=== PATIENT | male | born 1955 | race Caucasian/White ===

== ENCOUNTER 2019-03-14 15:04 | Inpatient (IN) | payer MEDICARE, MEDICAID ==
[~2019-03-14] VITALS: Ht 185.4 cm; Wt 66.7 kg
[2019-03-14 15:10] VITALS: BP 152/85
--- NOTE | 2019-03-14 15:10 | NUR ---
ED Nurse Note: Pt brought in on wheelchair from doctor's office d/t urinary retention. Pt states "it's hard for me to pee. I haven't peed in days." Respirations even and unlabored on room air. Vitals stable as documented
--- NOTE | 2019-03-14 15:21 | Emergency Room Report ---
History of Present Illness General Chief Complaint: Male Urogenital Problems Source: Patient Present Illness HPI Patient is a 63-year-old male brought in by self after increased difficulty with urination. Prior history of chronic diarrhea. Reports having episodic difficulty emptying bladder as well as urinary problems. Had recent urination this morning.Patient had been also having difficulty going to the bathroom and had been requiring more frequent medications in order to maintain bowel function. Reports having some increased generalized weakness. He states he takes multiple medications which he cannot remember. Allergies: Coded Allergies: AMOXICILLIN (Verified Allergy, Mild, 04/06/15) Patient History Past Medical History: see triage record Reviewed Nursing Documentation: PMH: Agreed; PSxH: Agreed Review of Systems All Other Systems: negative except mentioned in HPI Physical Exam Vital Signs Date Time Temp Pulse Resp B/P (MAP) Pulse Ox O2 Delivery O2 Flow Rate FiO2 03/14/19 15:09 98.1 64 17 158/83 (108) 98 Room Air Sp02 EP Interpretation: reviewed, normal General Appearance: normal inspection, alert, GCS 15, Chronically Ill Head: atraumatic ENT: normal ENT inspection, hearing grossly normal, normal voice Neck: normal inspection, full range of motion, supple, no bony tend Respiratory: normal inspection, lungs clear, normal breath sounds, no respiratory distress, no retraction, no wheezing Cardiovascular #1: regular rate, rhythm, no edema Gastrointestinal: normal inspection, normal bowel sounds, non tender, soft, no guarding, no hernia Genitourinary: no CVA tenderness Musculoskeletal: normal inspection, back normal, normal range of motion Neurologic: alert, motor strength/tone normal, client customer manager III-XII nml as tested, responsive, speech normal, normal inspection Psychiatric: normal inspection, judgement/insight normal, mood/affect normal Skin: no rash Medical Decision Making Diagnostic Impression: Primary Impression: Generalized weakness Additional Impression: Urinary retention ER Course Patient patient presented for increased difficulty with urination. Differential diagnosis include was not limited to urinary retention, prostate enlargement, urinary retention among others.Patient was noted to have no sensation that he needed to void. Prostate hypertrophy as well as intestinal polyps. Patient reportedly had been able to void. Ogden catheter was placed and patient had large amount of urine output. Patient denies sensation that he needed to urinate.Patient was discussed with Dr. Oscar French. Patient be admitted to [facility] per his request. Dr. Honorio Dubon was contacted for inpatient management. Labs Test 03/14/19 15:51 03/14/19 16:30 White Blood Count 3.8 K/UL (4.8-10.8) Red Blood Count 3.67 M/UL (4.70-6.10) Hemoglobin 12.3 G/DL (14.2-18.0) Hematocrit 34.9 % (42.0-52.0) Mean Corpuscular Volume 95 FL (80-99) Mean Corpuscular Hemoglobin 33.5 PG (27.0-31.0) Mean Corpuscular Hemoglobin Concent 35.3 G/DL (32.0-36.0) Red Cell Distribution Width 10.9 % (11.6-14.8) Platelet Count 139 K/UL (150-450) Mean Platelet Volume 7.6 FL (6.5-10.1) Neutrophils (%) (Auto) 45.3 % (45.0-75.0) Lymphocytes (%) (Auto) 40.6 % (20.0-45.0) Monocytes (%) (Auto) 13.1 % (1.0-10.0) Eosinophils (%) (Auto) 0.4 % (0.0-3.0) Basophils (%) (Auto) 0.7 % (0.0-2.0) Prothrombin Time 11.1 SEC (9.30-11.50) Prothromb Time International Ratio 1.0 (0.9-1.1) Activated Partial Thromboplast Time 30 SEC (23-33) Sodium Level 138 MMOL/L (136-145) Potassium Level 4.5 MMOL/L (3.5-5.1) Chloride Level 103 MMOL/L (98-107) Carbon Dioxide Level 29 MMOL/L (21-32) Anion Gap 6 mmol/L (5-15) Blood Urea Nitrogen 9 mg/dL (7-18) Creatinine 0.7 MG/DL (0.55-1.30) Estimat Glomerular Filtration Rate > 60 mL/min (>60) Glucose Level 75 MG/DL (74-106) Calcium Level 9.1 MG/DL (8.5-10.1) Total Bilirubin 0.7 MG/DL (0.2-1.0) Aspartate Amino Transf (AST/SGOT) 23 U/L (15-37) Alanine Aminotransferase (ALT/SGPT) 26 U/L (12-78) Alkaline Phosphatase 142 U/L (46-116) Troponin I 0.005 ng/mL (0.000-0.056) Total Protein 6.3 G/DL (6.4-8.2) Albumin 3.4 G/DL (3.4-5.0) Globulin 2.9 g/dL Albumin/Globulin Ratio 1.2 (1.0-2.7) Lipase 67 U/L (73-393) Urine Color Yellow Urine Appearance Clear Urine pH 6 (4.5-8.0) Urine Specific [place] 1.010 (1.005-1.035) Urine Protein Negative (NEGATIVE) Urine Glucose (UA) Negative (NEGATIVE) Urine Ketones Negative (NEGATIVE) Urine Blood Negative (NEGATIVE) Urine Nitrite Negative (NEGATIVE) Urine Bilirubin Negative (NEGATIVE) Urine Urobilinogen 1 MG/DL (0.0-1.0) Urine Leukocyte Esterase Negative (NEGATIVE) Last Vital Signs Date Time Temp Pulse Resp B/P (MAP) Pulse Ox O2 Delivery O2 Flow Rate FiO2 03/14/19 15:09 98.1 64 17 158/83 (108) 98 Room Air Status: unchanged Disposition: ADMITTED INPATIENT Condition: Stable Scripts Unable to Obtain Active Prescriptions or Reported Meds Eduardo Mckenna MD Mar 14, 2019 15:21
[2019-03-14 16:27] LABS: BASOPHILS % (AUTO) 0.7 % (0.0-2.0); EOSINOPHILS % (AUTO) 0.4 % (0.0-3.0); HEMATOCRIT 34.9 % (42.0-52.0); HEMOGLOBIN 12.3 G/DL (14.2-18.0); LYMPHOCYTES % (AUTO) 40.6 % (20.0-45.0); MEAN CORPUSCULAR VOLUME 95 FL (80-99); MONOCYTES % (AUTO) 13.1 % (1.0-10.0); NEUTROPHILS % (AUTO) 45.3 % (45.0-75.0); PLATELET COUNT 139 K/UL (150-450); RED BLOOD COUNT 3.67 M/UL (4.70-6.10); RED CELL DISTRIBUTION WIDTH 10.9 % (11.6-14.8); WHITE BLOOD COUNT 3.8 K/UL (4.8-10.8)
[2019-03-14 16:43] LABS: ANION GAP 6 mmol/L (5-15); BLOOD UREA NITROGEN 9 mg/dL (7-18); CALCIUM 9.1 MG/DL (8.5-10.1); CARBON DIOXIDE 29 MMOL/L (21-32); CHLORIDE 103 MMOL/L (98-107); CREATININE 0.7 MG/DL (0.55-1.30); POTASSIUM 4.5 MMOL/L (3.5-5.1); SODIUM 138 MMOL/L (136-145)
[2019-03-14 16:47] LABS: ALANINE AMINOTRANSFERASE 26 U/L (12-78); ALBUMIN 3.4 G/DL (3.4-5.0); ALBUMIN/GLOBULIN RATIO 1.2 (1.0-2.7); ALKALINE PHOSPHATASE 142 U/L (46-116); ASPARTATE AMINO TRANSFERASE 23 U/L (15-37); BILIRUBIN,TOTAL 0.7 MG/DL (0.2-1.0)
--- NOTE | 2019-03-14 16:48 | NUR ---
ED Nurse Note: 14Fr rogel inserted and urine sent to lab.
[2019-03-14 17:05] LABS: APPEARANCE,URINE CLEAR; BILIRUBIN, URINE NEGATIVE (NEGATIVE); GLUCOSE, URINE (UA) NEGATIVE (NEGATIVE); KETONES,URINE NEGATIVE (NEGATIVE); LEUKOCYTE ESTERASE ,URINE NEGATIVE (NEGATIVE); NITRITE,URINE NEGATIVE (NEGATIVE); PH,URINE 6 (4.5-8.0); PROTEIN,URINE NEGATIVE (NEGATIVE); UROBILINOGEN,URINE 1 MG/DL (0.0-1.0)
[2019-03-14 17:08] LABS: COLOR,URINE YELLOW
--- NOTE | 2019-03-14 17:55 | NUR ---
ED Nurse Note: Report given to DANIELLA Montana on 4E.
--- NOTE | 2019-03-14 18:01 | NUR ---
NURSE NOTES: received patient report from DANIELLA Emerson,ER. patient will be admitted to room [address] Hodgson.
--- NOTE | 2019-03-14 18:20 | NUR ---
ED Nurse Note: Pt brought up safely to 4E.
--- NOTE | 2019-03-14 18:40 | NUR ---
NURSE NOTES: patient admitted to room 419-1 under Rema AUGUSTIN care dx of weakness and decreased urine. alert. oriented. verbally responsive. no respiratory distress noted on room air. no c/o pain at this time. IV on LH20 intact. F/C 14fr. intact. draining well. no hematuria noted. checked and counted belongings with patient. per patient he is missing photo ID and Bren credit card. Called ER spoke to DANIELLA Suárez. she said she put the bren card back to the black wallet and there was no photo ID. She will check the patient's room again and call us back. two cigarets and pulmonology physician placed in the chart. bed in the lowest position and locked. call light within reach. will continue to provide plan of care.
--- NOTE | 2019-03-14 18:57 | NUR ---
NURSE NOTES: received bren card and shell gas card from JEANNIE Haque nurse. patient is aware.
--- NOTE | 2019-03-14 19:25 | History and Physical ---
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 Patient was initially taking Flomax 0.4 mg daily, recently increased to twice daily. This did not help the patient. Ogden catheter was placed in the ER with significant residual urine of 600 mL. Recent colonoscopy in June 2018 showed no evidence of recurrent anal cancer, radiation changes secondary to anal cancer, multiple colonic polyps including a large polyp in the descending colon which was not Amenable to traditional polypectomy Past medical history: HIV disease, hypertension, ataxia following stroke and substance use, transverse colon adenoma, history of anal cancer status post chemo, dementia with behavioral disturbance, vitamin D deficiency, bipolar disorder, depression, seizure disorder Past surgical history: None Social history: Non-smoker, previous EtOH and cocaine use Family history: Mother with severe lupus Allergies: Coded Allergies: AMOXICILLIN (Verified Allergy, Mild, 04/06/15) Medication History Scheduled Acyclovir* (Zovirax*), 800 MG ORAL BID, (Reported) Clonazepam (Clonazepam), 2 MG PO BID, (Reported) Diphenhydramine Hcl (Banophen), 50 MG PO BID, (Reported) Divalproex Sodium* (Depakote Er*), 1,000 MG ORAL EVERY 12 HOURS, (Reported) Divalproex Sodium* (Depakote Er*), 250 MG ORAL DAILY, (Reported) Ergocalciferol (Vitamin D2) (Ergocalciferol), 50,000 UNIT PO DAILY, (Reported) Escitalopram Oxalate* (Lexapro*), 20 MG ORAL DAILY, (Reported) Hydroxyzine Hcl (Hydroxyzine Hcl), 10 MG PO THREE TIMES A DAY, (Reported) Lactose-Free Food (Boost Plus), 237 ML PO TID, (Reported) Lamotrigine (Lamictal Odt), 150 MG PO DAILY, (Reported) Levetiracetam (Keppra), 1,000 MG ORAL BID, (Reported) Levothyroxine Sodium* (Synthroid*), 200 MCG ORAL DAILY, (Reported) Loperamide HCl (Loperamide), 2 MG ORAL QID, (Reported) Lubiprostone (Amitiza*), 8 MCG ORAL Q12HR, (Reported) Lubiprostone (Amitiza*), 24 MCG ORAL DAILY, (Reported) Maraviroc* (Selzentry*), 150 MG ORAL EVERY 12 HOURS, (Reported) Methylphenidate Hcl* (Ritalin*), 10 MG ORAL BID, (Reported) Miscellaneous Information (Aptivus), 500 MG ORAL BID, (Reported) Modafinil* (Provigil), 100 MG ORAL DAILY, (Reported) Naloxegol Oxalate (Movantik), 12.5 MG PO DAILY, (Reported) Oxymetholone* (Anadrol-50*), 50 MG PO DAILY, (Reported) Propranolol Hcl* (Inderal*), 20 MG ORAL THREE TIMES A DAY, (Reported) Raltegravir Potassium (Isentress), 400 MG ORAL TWICE A DAY, (Reported) Ritonavir (Norvir), 100 MG ORAL TWICE A DAY, (Reported) Rosuvastatin Calcium* (Crestor*), 5 MG ORAL DAILY, (Reported) Sulfamethoxazole/Trimethoprim (Bactrim 400-80 Mg Tablet*), 1 TAB ORAL TWICE A DAY, (Reported) Tamsulosin HCl (Flomax), 0.4 MG ORAL DAILY, (Reported) Thiamine Hcl* (Vitamin B-1*), 50 MG ORAL DAILY, (Reported) Scheduled PRN Diphenhydramine Hcl* (Diphenhydramine Hcl*), 50 MG ORAL BID PRN for Itching, ( Reported) Oxycodone Hcl (Oxycodone Hcl), 10 MG ORAL Q6H PRN for For Pain, (Reported) Miscellaneous Medications Naloxone HCl (Narcan), 4 MG NS, (Reported) Testosterone Cypionate (Depo-Testosterone), 200 MG IM, (Reported) Water/Me-Paraben/Propylparaben (Bacteriostatic Water Vial), 30 ML IJ, (Reported) Patient History Healthcare decision maker N Resuscitation status Advanced Directive on File Review of Systems Constitutional: Reports: weakness Eye: Denies: no symptoms, see HPI, eye pain, blurred vision, tearing, double vision, nose pain, nose congestion, acuity changes, discharge, other ENT: Denies: no symptoms, see HPI, ear pain, ear discharge, nose pain, nose congestion, throat pain, throat swelling, mouth pain, hearing loss, nasal discharge, other Respiratory: Denies: no symptoms, see HPI, cough, orthopnea, shortness of breath, stridor, wheezing, MAR, sputum, other Cardiovascular: Denies: no symptoms, see HPI, chest pain, edema, palpitations, syncope, PND, other Gastrointestinal: Denies: no symptoms, see HPI, abdominal pain, constipation, diarrhea, nausea, vomiting, melena, hematemesis, other Genitourinary: Reports: retention Musculoskeletal: Denies: no symptoms, see HPI, back pain, gout, joint pain, joint swelling, muscle pain, muscle stiffness, other Skin: Denies: no symptoms, see HPI, rash, change in color, change in hair/nails , dryness, lesions, other Psychiatric: Denies: no symptoms, see HPI, prior hx, anxiety, depressed feelings, emotional problems, SI, HI, hallucinations, other Neurological: Denies: no symptoms, see HPI, headache, numbness, paresthesia, seizure, tingling, tremors, focal weakness, syncope, dizziness, other Endocrine: Denies: no symptoms, see HPI, excessive sweating, flushing, intolerance to temperature, increased thirst, increased urine, unexplained weight loss, other Hematologic/Lymphatic: Denies: no symptoms, see HPI, anemia, blood clots, easy bleeding, easy bruising, swollen glands, diathesis, other Physical Exam General Appearance: no apparent distress, cachetic Lines, tubes and drains: peripheral HEENT: normocephalic, atraumatic, anicteric, mucous membranes moist, PERRL, EOMI Neck: non-tender, normal alignment, supple Respiratory/Chest: chest wall non-tender, lungs clear, normal breath sounds, no respiratory distress, no accessory muscle use Cardiovascular/Chest: normal peripheral pulses, normal rate, regular rhythm, no JVD Abdomen: normal bowel sounds, non tender, soft, no organomegaly Extremities: normal range of motion, non-tender, normal inspection, no calf tenderness Skin Exam: normal pigmentation, warm/dry Neurologic: production laborer II-XII grossly normal, no motor/sensory deficits, abnormal gait , alert, oriented x 3, responsive Musculoskeletal: normal muscle bulk Last 24 Hour Vital Signs Date Time Temp Pulse Resp B/P (MAP) Pulse Ox O2 Delivery O2 Flow Rate FiO2 03/14/19 15:10 98.0 65 17 152/85 98 Room Air 03/14/19 15:09 98.1 64 17 158/83 (108) 98 Room Air Laboratory Tests Test 03/14/19 15:51 03/14/19 16:30 White Blood Count 3.8 K/UL (4.8-10.8) L Red Blood Count 3.67 M/UL (4.70-6.10) L Hemoglobin 12.3 G/DL (14.2-18.0) L Hematocrit 34.9 % (42.0-52.0) L Mean Corpuscular Volume 95 FL (80-99) Mean Corpuscular Hemoglobin 33.5 PG (27.0-31.0) H Mean Corpuscular Hemoglobin Concent 35.3 G/DL (32.0-36.0) Red Cell Distribution Width 10.9 % (11.6-14.8) L Platelet Count 139 K/UL (150-450) L Mean Platelet Volume 7.6 FL (6.5-10.1) Neutrophils (%) (Auto) 45.3 % (45.0-75.0) Lymphocytes (%) (Auto) 40.6 % (20.0-45.0) Monocytes (%) (Auto) 13.1 % (1.0-10.0) H Eosinophils (%) (Auto) 0.4 % (0.0-3.0) Basophils (%) (Auto) 0.7 % (0.0-2.0) Prothrombin Time 11.1 SEC (9.30-11.50) Prothromb Time International Ratio 1.0 (0.9-1.1) Activated Partial Thromboplast Time 30 SEC (23-33) Sodium Level 138 MMOL/L (136-145) Potassium Level 4.5 MMOL/L (3.5-5.1) Chloride Level 103 MMOL/L (98-107) Carbon Dioxide Level 29 MMOL/L (21-32) Anion Gap 6 mmol/L (5-15) Blood Urea Nitrogen 9 mg/dL (7-18) Creatinine 0.7 MG/DL (0.55-1.30) Estimat Glomerular Filtration Rate > 60 mL/min (>60) Glucose Level 75 MG/DL (74-106) Calcium Level 9.1 MG/DL (8.5-10.1) Total Bilirubin 0.7 MG/DL (0.2-1.0) Aspartate Amino Transf (AST/SGOT) 23 U/L (15-37) Alanine Aminotransferase (ALT/SGPT) 26 U/L (12-78) Alkaline Phosphatase 142 U/L (46-116) H Troponin I 0.005 ng/mL (0.000-0.056) Total Protein 6.3 G/DL (6.4-8.2) L Albumin 3.4 G/DL (3.4-5.0) Globulin 2.9 g/dL Albumin/Globulin Ratio 1.2 (1.0-2.7) Lipase 67 U/L (73-393) L Urine Color Yellow Urine Appearance Clear Urine pH 6 (4.5-8.0) Urine Specific [place] 1.010 (1.005-1.035) Urine Protein Negative (NEGATIVE) Urine Glucose (UA) Negative (NEGATIVE) Urine Ketones Negative (NEGATIVE) Urine Blood Negative (NEGATIVE) Urine Nitrite Negative (NEGATIVE) Urine Bilirubin Negative (NEGATIVE) Urine Urobilinogen 1 MG/DL (0.0-1.0) H Urine Leukocyte Esterase Negative (NEGATIVE) Height (Feet): 6 Height (Inches): 1.00 Weight (Pounds): 147 Assessment/Plan Status: stable Assessment/Plan: This is a 63-year-old male with HIV disease who presented with urinary retention going on for 2 weeks. #Urinary retention. BPH versus neurogenic bladder Continue Flomax 0.8 mg daily Continue Ogden catheter Urology consult with Dr. Zamora #HIV disease Continue home meds. Patient to bring his own medications in case pharmacy does not carry his HIV medications Continue Bactrim #Hypertension #CVA with ataxia #Hyperlipidemia Continue propanolol Continue Crestor #Hypothyroidism Continue Synthroid #Descending colon large polyp #History of anal cancer status post chemo and radiation GI consult with #Dementia.? HIV related, with behavioral disturbances #Bipolar disorder #Depression Continue Lexapro # seizure disorder Continue Keppra, continue Depakote #Chronic pain pain control, Oxycodone I spent 70 minutes on this encounter. Greater than 50% spent counseling care coordination. Plan of care discussed with patient, Dr. Gillian RN and consultants Time of note may not reflect time of encounter. Honorio Dubon M.D. Mar 14, 2019 19:25
[2019-03-14] MEDS ORDERED: Albuterol/Ipratropium 3ml neb HHN PRN (19:30)
[2019-03-14] MEDS ORDERED: LORazepam 1mg tab ORAL PRN (19:30)
--- NOTE | 2019-03-14 19:37 | NUR ---
HAND-OFF: Report given to DANIELLA Cruz.
[2019-03-14 20:00] VITALS: BP 144/70
--- NOTE | 2019-03-14 20:12 | NUR ---
NURSE NOTES: Received patient in bed, awake, alert, oriented, able to make his needs known, IV site is clean dry and intact. Ogden cath is in place, 14 fr, secured. Call light is within reach, bed is lowered, locked, alarm is on, will continue to monitor for comfort and safety.
[2019-03-14] MEDS ORDERED: Tamsulosin 0.4mg cap ORAL SCH (21:00)
[2019-03-14] MEDS: Depakote ER 250mg tab ORAL SCH (21:08)
[2019-03-15] VITALS: BP 136/77
[2019-03-15 04:00] VITALS: BP 152/96
--- NOTE | 2019-03-15 06:57 | NUR ---
HAND-OFF: Report given to Pedro Luis BREWER.
--- NOTE | 2019-03-15 07:30 | NUR ---
NURSE NOTES: Handoff received from DANIELLA Cruz. Patient received awake and alert and able to make needs known, no acute signs of distress noted. Patient stated that he is cold and requested another gown, provided gown to patient and helped him sit at the bed to eat breakfast. Patient denies pain at this time. IV site is clean dry and intact, saline locked, bed in the low and locked position with call light within reach, will continue to monitor patient. Patient advised to use call light if he needs to get out of bed as he has a rogel and am told by PM nurse that patient is unsteady, bed alarm is on.
[2019-03-15] MEDS: Depakote ER 250mg tab ORAL SCH (09:33)
--- NOTE | 2019-03-15 11:30 | NUR ---
NURSE NOTES: called and spoke to the patient's sister to clarify the medication's the patient takes at home. Patient stated that the dose of keppra and depakote is lower than his regular dose. Sister faxed over the medication list with the updated dose. Entered the medications from both the list given from the sister and the one given from Dr French.
[2019-03-15] MEDS ORDERED: SYNTHROID150 MCG ORAL (11:48)
[2019-03-15] MEDS ORDERED: NORVIR100 M2 ORAL (11:48)
[2019-03-15] MEDS ORDERED: KEPPRA1000 MG ORAL (11:48)
[2019-03-15] MEDS ORDERED: BACTRIM 400-801 EACH ORAL (11:48)
[2019-03-15] MEDS ORDERED: DEPO-TESTO100 MG/1 M IM (11:48)
[2019-03-15] MEDS ORDERED: MOVANTIK12.5 MG PO (11:48)
[2019-03-15] MEDS ORDERED: CLONAZEPAM2 MG PO (11:48)
[2019-03-15] MEDS ORDERED: VITAMIN B-1100 MG ORAL (11:48)
[2019-03-15] MEDS ORDERED: RITALIN10 MG ORAL (11:48)
[2019-03-15] MEDS ORDERED: BANOPHEN50 MG PO (11:48)
[2019-03-15] MEDS ORDERED: IMODIUM2 MG ORAL (11:48)
[2019-03-15] MEDS ORDERED: ERGOCALCIF8000 UNIT1 PO (11:48)
[2019-03-15] MEDS ORDERED: DEPAKOTE ER250 MG ORAL (11:48)
[2019-03-15] MEDS ORDERED: ANADROL-5050 MG PO (11:48)
[2019-03-15] MEDS ORDERED: AMITIZA24 MCG ORAL ×2 (11:48)
[2019-03-15] MEDS ORDERED: HYDROXYZINE HCL10 M1 PO (11:48)
[2019-03-15] MEDS ORDERED: [UNRECOGNIZED DRUG - OTHER] IJ (11:48)
[2019-03-15] MEDS ORDERED: CRESTOR10 M2 ORAL (11:48)
[2019-03-15] MEDS ORDERED: MODAFINIL100 MG ORAL (11:48)
[2019-03-15] MEDS ORDERED: BOOST PLUS237 ML PO (11:48)
[2019-03-15] MEDS ORDERED: DIPHENHYDRAMINE25 M1 ORAL (11:48)
[2019-03-15] MEDS ORDERED: DEPAKOTE ER500 MG ORAL (11:48)
[2019-03-15] MEDS ORDERED: NARCAN4 MG NS (11:48)
[2019-03-15] MEDS ORDERED: LEXAPRO20 MG ORAL (11:48)
[2019-03-15] MEDS ORDERED: ACYCLOVIR800 MG ORAL (11:48)
[2019-03-15] MEDS ORDERED: OXYCODONE HCL20 M1 ORAL (11:48)
[2019-03-15] MEDS ORDERED: ISENTRESS100 MG ORAL (11:48)
[2019-03-15] MEDS ORDERED: PROPRANOLOL HCL20 MG ORAL (11:48)
[2019-03-15] MEDS ORDERED: LAMICTAL ODT100 MG PO (11:48)
[2019-03-15] MEDS ORDERED: FLOMAX0.4 MG ORAL (11:48)
[2019-03-15] MEDS ORDERED: [UNRECOGNIZED DRUG - OTHER] ORAL (11:48)
[2019-03-15] MEDS ORDERED: SELZENTRY150 MG ORAL (11:48)
--- NOTE | 2019-03-15 11:51 | NUR ---
CASE MANAGEMENT:INITIAL REVIEW 63 YR OLD MALE BROUGHT IN W/C FROM DR NOYOLA'S OFFICE CC;MALE UROGENITAL PROBLEMS SI;GENERALIZED WEAKNESS. URINARY RETENTION. 98.1 55 17 158/83 98% ON RA ALK PHOS 142 NATARAJAN CATHETERIZATION IS;IVF NS BOLUS X1 ADMITTED TO MED SURG MED SURG STATUS DCP;FROM HOME
[2019-03-15 12:00] VITALS: BP 181/91
--- NOTE | 2019-03-15 13:03 | NUR ---
NURSE NOTES: Patient states he has a meeting on Monday and expressed that he want to leave against medical advice. Spoke to patient to see if I could get him to reconsider leaving against the advice if the doctor. Patient still desires to leave. Contacted Dr gracia to make him aware of the patient's decision to leave against medical advice.
--- NOTE | 2019-03-15 13:18 | NUR ---
NURSE NOTES: Dr nicholson called and said patient can be discharged, no need for AMA. informed patient that he is being discharge.
--- NOTE | 2019-03-15 14:30 | Consultation ---
DATE OF CONSULTATION: 03/15/2019 CONSULTING PHYSICIAN: Masoud Zamora M.D. REFERRING PHYSICIAN: Honorio Dubon M.D. REASON FOR CONSULTATION: For evaluation of urinary retention. HISTORY OF PRESENT ILLNESS: This is a 63-year-old male. He came to the ER complaining of difficulty voiding. He was noted to be in urinary retention. Ogden catheter was placed with significant residual urine, I believe reportedly greater than 600 mL. Urology evaluation is requested. The patient does have a history of BPH. He has been on Flomax as an outpatient. Apparently, it was recently increased in dose. PAST MEDICAL HISTORY: Significant for history of HIV. He has I guess seizure disorder. PAST SURGICAL HISTORY: Unknown. CURRENT MEDICATION LIST: Here in the hospital, the patient is on Flomax, Keppra, Depakote, Tylenol, Ativan. ALLERGIES: To amoxicillin. SOCIAL HISTORY: The patient is currently nonsmoker. REVIEW OF SYSTEMS: As above. FAMILY HISTORY: Noncontributory. PHYSICAL EXAMINATION: GENERAL: Elderly male, slightly cachectic. VITAL SIGNS: Temperature is 97.2, blood pressure is 150/96, pulse 66, respirations 18. HEENT: Normocephalic. NECK: Supple. ABDOMEN: Soft. Ogden catheter is in place. This is a 14-Iceland[place] catheter. RECTAL: Reveals a soft prostate, which feels to be maybe 20 to 30 g. EXTREMITIES: No clubbing or cyanosis. LABORATORY DATA: UA was negative. White count 3.8, hemoglobin 12.3, platelets 139. BUN is 9, creatinine 0.7, potassium 4.5. DIAGNOSTIC IMAGING STUDIES: There was none during this admission. His old imaging was reviewed. There was no renal imaging. IMPRESSION: 1. Urinary retention. 2. BPH. 3. Possible neurogenic bladder. PLAN AND DISCUSSION: Again, Ogden catheter is indwelling. It was placed at the time of admission. I agree with continuing the patient on Flomax 0.8 mg and he can have a voiding trial after that once he has been more ambulatory. His prostate by exam is not enlarged and he may have atonic bladder. We can consider adding also. He will need to have cystoscopy at some point to evaluate the lower urinary tract. At this time, it can be done potentially electively as an outpatient. Thank you, Dr. Dubon, for asking me to see this patient in consultation. Masoud Zamora M.D. DR: WISAM JOB#: [id number] CC:
--- NOTE | 2019-03-15 15:07 | NUR ---
NURSE NOTES: patient discharged and left alert and oriented, ambulating. Patient is taking a bus home. Patient educated on how to take care of rogel and how to empty the leg drainage bag. Instructed patient to measure output at every emptying of the drainage bag, gave patient a measuring jug to measure output. Also explained to patient importance of following up with Dr Cervantes the Urologist and to follow up with his primary care physician. Patient discharge instructions printed for weakness and catheter care. IV site removed with no bleeding or hematoma noted. Patient signed the belongings list and discharge paperwork and left stable.
--- NOTE | 2019-03-15 20:45 | Consultation ---
DATE OF CONSULTATION: 03/15/2019 CHIEF COMPLAINT: History of colonic polyps, need for colonoscopy. HISTORY OF PRESENT ILLNESS: This is a 63-year-old male with past medical history of HIV on medication, admitted to the hospital mainly for urinary retention. Also, the patient apparently had a colonoscopy few months ago which was incomplete. He had some polyps which are cancerous and need a repeat colonoscopy with better prep, but the patient has not got into get a colonoscopy yet. PAST MEDICAL HISTORY: 1. History of HIV. 2. Colonic polyp. 3. Seizure disorder. 4. Thyroid disease. 5. Chronic tremor. 6. Chronic diarrhea and constipation cycles. ALLERGIES: Amoxicillin. MEDICATIONS: Please see medication reconciliation list. FAMILY HISTORY: Noncontributory. SOCIAL HISTORY: The patient denies any tobacco, alcohol, or drug abuse. PAST SURGICAL HISTORY: None. REVIEW OF SYSTEMS: Positive for IBS symptoms with complaint of diarrhea and constipation, complaining of urinary retention. No fevers. No chills. No weight loss. PHYSICAL EXAMINATION: VITAL SIGNS: Temperature is 97.7, pulse 53, respirations 16, blood pressure is 181/91. HEENT: Normocephalic and atraumatic. Sclerae are anicteric. NECK: Supple. No evidence of obvious lymphadenopathy. CARDIOVASCULAR: Regular rate and rhythm. Plus S1 and S2. LUNGS: Clear to auscultation bilaterally. ABDOMEN: Positive bowel sounds. Soft and nontender. No rebound. No guarding. No peritoneal sign. EXTREMITIES: No cyanosis, no clubbing, no edema. LABORATORY AND DIAGNOSTIC DATA: White count is 3.8, hemoglobin is 12.3, hematocrit 34, platelet count is 139. Chem-7, sodium 138, potassium 4.5, BUN is 9, creatinine 0.7. ASSESSMENT AND PLAN: This is a 63-year-old male with HIV, history of urinary retention, symptoms of IBS with diarrhea and constipation, history of colonic polyp that apparently needs to be resected. It was too big to resect at [facility], another GI doctor. I offered the patient to have a colonoscopy on Monday. He is not very sure if he wants to stay in the hospital for that. He is here mainly for urinary retention and he has been treated, but he also definitely needs to have another colonoscopy done for those colonic polyps that needs to be removed. I offered him again to stay over the weekend. We will prep on Monday Monday, he is going to think about it. Meanwhile, we are going to follow his labs and treat his symptoms accordingly. Follow up with Urology regarding his urinary retention and make further recommendation as we go along. I want to thank Dr. Ferrara for this kind referral. Martínez Olivas M.D. DR: Helen JOB#: [id number] CC: Jeanine Ferrara M.D.; Fax#: [phone]
--- NOTE | 2019-03-15 22:28 | Discharge Summary ---
Discharge Summary Hospital Course Date of Admission Mar 14, 2019 at 16:05 Date of Discharge Mar 15, 2019 at 15:00 Admitting Diagnosis generalized weakness, decreased urine HPI Bala Holliday is a 63 year old male who was admitted on Mar 14, 2019 at 16:05 for Generalized Weakness,Decrased Urine Consultations GI, urology Procedures Ogden catheter placement Hospital Course This is a 63-year-old male with HIV disease who presented with urinary retention going on for 2 weeks. #Urinary retention. BPH versus neurogenic bladder Continue Flomax 0.8 mg daily Continue Ogden catheter Urology consult with Dr. Zamora #HIV disease Continue home meds. 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 Insisted that he had an important meeting on Monday. Case discussed with urology who advised patient be discharged with his Ogden catheter. Patient has 's card to make an appointment for an outpatient voiding trial and cystoscopy. This plan was discussed with Dr. French. Patient is alert and oriented x3, in no distress and will be discharged home. I spent 40 minutes on this encounter. Greater than 50% spent counseling care coordination. Plan of care discussed with patient, Dr. French, RN and consultants Time of note may not reflect time of encounter. Discharge Medications Continued Medications: Acyclovir* (Zovirax*) 800 Mg Tablet 800 MG ORAL BID for ., TAB (This prescription has been renewed) Clonazepam (Clonazepam) 2 Mg Tablet 2 MG PO BID for ., TAB (This prescription has been renewed) Diphenhydramine Hcl (Banophen) 50 Mg Capsule 50 MG PO BID for ., CAP (This prescription has been renewed) Diphenhydramine Hcl* (Diphenhydramine Hcl*) 25 Mg Capsule 50 MG ORAL BID PRN for Itching, #30 CAP 0 Refills (This prescription has been renewed) Divalproex Sodium* (Depakote Er*) 500 Mg Tab.er.24h 1000 MG ORAL EVERY 12 HOURS for ., TAB (This prescription has been renewed) Divalproex Sodium* (Depakote Er*) 250 Mg Tab.er.24h 250 MG ORAL DAILY for ., TAB (This prescription has been renewed) Ergocalciferol (Vitamin D2) (Ergocalciferol) 8,000 Unit/1 Ml Drops 30664 UNIT PO DAILY for ., ML (This prescription has been renewed) Escitalopram Oxalate* (Lexapro*) 20 Mg Tablet 20 MG ORAL DAILY for ., TAB (This prescription has been renewed) Hydroxyzine Hcl (Hydroxyzine Hcl) 10 Mg Tablet 10 MG PO THREE TIMES A DAY for . for 30 Days, TAB (This prescription has been renewed) Lactose-Free Food (Boost Plus) 237 Ml Liquid 237 ML PO TID for ., ML (This prescription has been renewed) Lamotrigine (Lamictal Odt) 100 Mg Tab.rapdis 150 MG PO DAILY for ., TAB (This prescription has been renewed) Levetiracetam (Keppra) 1,000 Mg Tablet 1000 MG ORAL BID for ., #30 TAB 0 Refills (This prescription has been renewed) Levothyroxine Sodium* (Synthroid*) 150 Mcg Tablet 200 MCG ORAL DAILY for ., TAB (This prescription has been renewed) Take in the morning on an empty stomach, at least 30 minutes before food. Loperamide HCl (Loperamide) 2 Mg Capsule 2 MG ORAL QID for ., #20 CAP 0 Refills (This prescription has been renewed) Lubiprostone (Amitiza*) 24 Mcg Capsule 8 MCG ORAL Q12HR for ., CAP (This prescription has been renewed) Lubiprostone (Amitiza*) 24 Mcg Capsule 24 MCG ORAL DAILY for ., CAP (This prescription has been renewed) Maraviroc* (Selzentry*) 150 Mg Tablet 150 MG ORAL EVERY 12 HOURS for ., TAB (This prescription has been renewed) Methylphenidate Hcl* (Ritalin*) 10 Mg Tablet 10 MG ORAL BID for ., #10 TAB 0 Refills (This prescription has been renewed) Miscellaneous Information (Aptivus) 250 Mg Capsule 500 MG ORAL BID for ., CAP (This prescription has been renewed) Modafinil* (Provigil) 100 Mg Tablet 100 MG ORAL DAILY for ., TAB 0 Refills (This prescription has been renewed) Naloxegol Oxalate (Movantik) 12.5 Mg Tablet 12.5 MG PO DAILY for ., TAB (This prescription has been renewed) Naloxone HCl (Narcan) 4 Mg Alto 4 MG NS for ., SPRAY (This prescription has been renewed) Oxycodone Hcl (Oxycodone Hcl) 20 Mg Tablet 10 MG ORAL Q6H PRN for For Pain, #10 TAB 0 Refills (This prescription has been renewed) Oxymetholone* (Anadrol-50*) 50 Mg Tablet 50 MG PO DAILY for ., TAB (This prescription has been renewed) Propranolol Hcl* (Inderal*) 20 Mg Tablet 20 MG ORAL THREE TIMES A DAY for ., #90 TAB 0 Refills (This prescription has been renewed) Raltegravir Potassium (Isentress) 100 Mg Tab.chew 400 MG ORAL TWICE A DAY for ., TAB (This prescription has been renewed) Ritonavir (Norvir) 100 Mg Tablet 100 MG ORAL TWICE A DAY for ., TAB (This prescription has been renewed) Rosuvastatin Calcium* (Crestor*) 10 Mg Tablet 5 MG ORAL DAILY for ., TAB (This prescription has been renewed) Sulfamethoxazole/Trimethoprim (Bactrim 400-80 Mg Tablet*) 1 Each Tablet 1 TAB ORAL TWICE A DAY for ., TAB (This prescription has been renewed) Tamsulosin HCl (Flomax) 0.4 Mg Cap.er.24h 0.4 MG ORAL DAILY for ., CAP (This prescription has been renewed) Testosterone Cypionate (Depo-Testosterone) 100 Mg/1 Ml Vial 200 MG IM for ., VIAL (This prescription has been renewed) Thiamine Hcl* (Vitamin B-1*) 100 Mg Tablet 50 MG ORAL DAILY for ., #30 TAB 0 Refills (This prescription has been renewed) Water/Me-Paraben/Propylparaben (Bacteriostatic Water Vial) 30 Ml Vial 30 ML IJ for ., VIAL (This prescription has been renewed) Discharge Condition Upon Discharge: stable Discharge Vital Signs Last Vital Signs Date Time Temp Pulse Resp B/P (MAP) Pulse Ox O2 Delivery O2 Flow Rate FiO2 03/15/19 12:00 97.7 53 16 181/91 (121) 99 03/15/19 11:03 Room Air 21 Discharge Disposition Patient was discharged to home with self-care Discharge Diagnoses: (1) Urinary retention (2) Polyp of descending colon (3) HIV disease Honorio Dubon M.D. Mar 15, 2019 22:28
== END 2019-03-15 15:00 | disposition home or self-care (01) | DRG 696 ==
LOC: EMR 15:49 → 4E 16:05 → EDBEDREQ 17:36
DX: R33.9 Retention of urine, unspecified (principal); B20 Human immunodeficiency virus [HIV] disease; I69.393 Ataxia following cerebral infarction; Z88.1 Allergy status to other antibiotic agents; E78.5 Hyperlipidemia, unspecified; I10 Essential (primary) hypertension; K63.5 Polyp of colon; E03.9 Hypothyroidism, unspecified; F31.9 Bipolar disorder, unspecified; G40.909 Epilepsy, unspecified, not intractable, without status epilepticus; G89.29 Other chronic pain; Z85.048 Personal history of other malignant neoplasm of rectum, rectosigmoid junction, and anus; Z92.3 Personal history of irradiation; N40.0 Benign prostatic hyperplasia without lower urinary tract symptoms; N31.9 Neuromuscular dysfunction of bladder, unspecified; R53.1 Weakness
CPT/HCPCS: 36415; 80053; 80299; 81003; 83690; 84484; 85025; 85610; 85730; 94664; 96360; 99285; J7030